=== PATIENT | female | born 1980 | race Caucasian/White ===

== ENCOUNTER 2020-11-22 10:04 | Day surgery (SDC) | payer OTHER ==
[2020-11-22 10:33] LABS: BASOPHIL 0.6 % (0-2); EOSINOPHIL 1.4 % (0-5); HCT 46.6 % (37.0-47.0); HGB 15.3 g/dl (12.5-16.0); MCH 33.5 pg (25.0-31.0); MCHC 32.8 g/dL (32.0-36.0); MONOCYTE 6.6 % (0-12); MPV 10.1 fL (6.0-9.5); NRBC 0; PLT 284 K/uL (150-400); RBC 4.57 M/uL (4.20-5.40); RDW 12.2 % (11.5-14.0); WBC 8.4 K/uL (4.0-10.5)
[2020-11-22 10:55] LABS: ALBUMIN 4.1 g/dL (3.4-5.0); BILIRUBIN - TOTAL 1.4 mg/dL (0.2-1.0); BUN/CREAT RATIO (CALC) 10.8 RATIO; CREATININE 0.93 mg/dL (0.51-0.95); POTASSIUM 3.6 mmol/L (3.5-5.1); TOTAL PROTEIN 9.1 g/dL (6.4-8.2)
[2020-11-22 11:34] LABS: BILIRUBIN 2+ mg/dL (NEGATIVE); BLOOD NEGATIVE Ery/uL (NEGATIVE); CLARITY HAZY (CLEAR); COLOR AMBER (YELLOW); GLUCOSE (U) NORMAL (NORMAL); LEUKOCYTES TRACE Leu/uL (NEGATIVE); NITRITE POSITIVE (NEGATIVE); PROTEIN 1+ mg/dL (NEGATIVE); SPECIFIC GRAVITY >=1.030 (1.001-1.030)
[2020-11-22 11:41] LABS: BACTERIA 4+; SQUAMOUS EPITHELIAL CELLS >50
[2020-11-22] MEDS ORDERED: BUSPAR5 MG PO (16:30)
[2020-11-22] MEDS ORDERED: FENOFIBRATE145 MG PO (16:30)
[2020-11-22] MEDS ORDERED: ZOLOFT50 MG PO (16:31)
[2020-11-22] MEDS ORDERED: PRINIVIL20 MG PO (16:31)
[2020-11-23] MEDS ORDERED: CIPRO500 MG PO (10:22)
[2020-11-23] MEDS ORDERED: OXY-IR 5MG5 MG PO (10:22)
[2020-11-23] MEDS ORDERED: ACETAMINOPHEN500 M1 PO (10:22)
[2020-11-23] MEDS ORDERED: MOTRIN600 MG PO (10:22)
[2020-11-23] MEDS ORDERED: COLACE100 MG PO (10:22)
[2021-01-26] MEDS ORDERED: FEOSOL325 MG PO (13:56)
[2021-01-26] MEDS ORDERED: VITAMIN D PO (13:57)
[2021-02-03] MEDS ORDERED: PROTONIX 40MG T40 MG PO (09:41)
[2021-02-03] MEDS ORDERED: METAMUCIL1 DOSE PO (09:42)
== END 2020-11-23 12:38 | disposition home or self-care (01) ==
LOC: FER 10:04 → FMS 12:38
PROVIDERS: Emergency Medicine
DX: K35.80 Unspecified acute appendicitis (principal); N83.201 Unspecified ovarian cyst, right side; N39.0 Urinary tract infection, site not specified; F17.210 Nicotine dependence, cigarettes, uncomplicated; I10 Essential (primary) hypertension; F41.9 Anxiety disorder, unspecified; Z79.899 Other long term (current) drug therapy; Z88.0 Allergy status to penicillin; Z23 Encounter for immunization; Z20.822 Contact with and (suspected) exposure to COVID-19
CPT/HCPCS: 36415; 80053; 81001; 83690; 85025; 87088; 87339; 90686; C9113; G0008; J1170; J1885; J1956; J2250; J2270; J2405; J2704; J2710; J3010; J3480; J7120; Q9967; U0002

== ENCOUNTER → 2021-02-03 | Day surgery (SDC) | payer OTHER ==
[~2021-02-03] MED LIST: ACETAMINOPHEN500 M1 PO; BUSPAR5 MG PO; CIPRO500 MG PO; COLACE100 MG PO; CYCLOBENZAPRINE10 MG PO; FENOFIBRATE145 MG PO; FEOSOL325 MG PO; MEDROL 4MG DOSEP4 MG PO; METAMUCIL1 DOSE PO; MOTRIN600 MG PO; OXY-IR 5MG5 MG PO; PRINIVIL20 MG PO; PROTONIX 40MG T40 MG PO; VITAMIN D PO; ZOLOFT50 MG PO
[2021-02-03 08:30] LABS: HCG (URINE) SCREEN NEGATIVE (NEGATIVE)
== END | disposition home or self-care (01) ==
LOC: FAS 08:09
PROVIDERS: Anesthesiology
DX: K21.00 Gastro-esophageal reflux disease with esophagitis, without bleeding (principal); I10 Essential (primary) hypertension; F17.210 Nicotine dependence, cigarettes, uncomplicated; M54.16 Radiculopathy, lumbar region; E78.00 Pure hypercholesterolemia, unspecified; F41.8 Other specified anxiety disorders; Z88.0 Allergy status to penicillin
CPT/HCPCS: 84703; J2704; J7120

== ENCOUNTER 2021-04-08 05:51 | Emergency (ER) | payer OTHER ==
[~2021-04-08 05:51] MED LIST changes: -CYCLOBENZAPRINE10 MG PO; -MEDROL 4MG DOSEP4 MG PO
[2021-04-08 06:33] LABS: BASOPHIL 1.2 % (0-2); EOSINOPHIL 2.7 % (0-5); HCT 41.4 % (37.0-47.0); HGB 13.7 g/dl (12.5-16.0); INR 0.93 (0.9-1.2); LYMPHOCYTE 56.4 % (15-48); MCH 32.9 pg (25.0-31.0); MCHC 33.1 g/dL (32.0-36.0); MCV 99.3 fL (78.0-100.0); MONOCYTE 7.7 % (0-12); MPV 10.6 fL (6.0-9.5); NEUTROPHIL 31.7 % (41-80); NRBC 0; PLT 329 K/uL (150-400); PROTHROMBIN TIME 11.8 SECONDS (11.4-13.6); PTT 25.8 SECONDS (22.2-34.7); RBC 4.17 M/uL (4.20-5.40); RDW 13.5 % (11.5-14.0); WBC 5.8 K/uL (4.0-10.5)
[2021-04-08 06:44] LABS: ALBUMIN 3.9 g/dL (3.4-5.0); BILIRUBIN - TOTAL 0.6 mg/dL (0.2-1.0); CREATININE 0.84 mg/dL (0.51-0.95); GLOBULIN (CALCULATION) 3.9 g/dL; POTASSIUM 4.3 mmol/L (3.5-5.1); TOTAL PROTEIN 7.8 g/dL (6.4-8.2)
[2021-04-08] MEDS ORDERED: MEDROL 4MG DOSEP4 MG PO (09:02)
[2021-04-08] MEDS ORDERED: CYCLOBENZAPRINE10 MG PO (09:02)
== END 2021-04-08 09:20 | disposition home or self-care (01) ==
LOC: FER 05:51
PROVIDERS: Emergency Medicine Emergency Medical Services
DX: R07.89 Other chest pain (principal); R91.1 Solitary pulmonary nodule; I70.1 Atherosclerosis of renal artery; I10 Essential (primary) hypertension; R53.1 Weakness; R11.0 Nausea; R42 Dizziness and giddiness; E78.5 Hyperlipidemia, unspecified; F17.210 Nicotine dependence, cigarettes, uncomplicated; Z79.899 Other long term (current) drug therapy; Z88.0 Allergy status to penicillin
CPT/HCPCS: 36415; 71045; 71275; 72125; 80053; 84484; 85025; 85610; 85730; 93005; J1100; J2270; J2405; J2800; J7050; Q9967